=== PATIENT | female | born 1990 | race Caucasian/White ===

== ENCOUNTER 2018-01-30 10:01 | Inpatient (IN) | payer BC ==
[2018-01-30] MEDS ORDERED: Acetaminophen 500 MG TAB PO PRN (11:11)
[2018-01-30] MEDS ORDERED: Promethazine HCl 25 MG/ML VIAL IM PRN (11:11)
[2018-01-30] MEDS ORDERED: Lidocaine 1% (PF) 30 ML VIAL SC PRN (11:11)
[2018-01-30] MEDS ORDERED: Ibuprofen 800 MG TAB PO PRN (11:11)
[2018-01-30] MEDS ORDERED: HYDROcodone/Acetaminophen 5/325 mg Tablet PO PRN ×2 (11:11)
[2018-01-30] MEDS ORDERED: Misoprostol 200 MCG TAB PR PRN (11:11)
[2018-01-30] MEDS ORDERED: Diphenoxylate HCl/Atropine Tablet PO PRN ×2 (11:11)
[2018-01-30] MEDS ORDERED: Ondansetron HCl/PF 4 MG/2 ML Vial IVP PRN (11:11)
[2018-01-30] MEDS ORDERED: Docusate 100 MG CAP PO PRN (11:11)
[2018-01-30] MEDS ORDERED: NS / Oxytocin 40 units/1000ml 1,000 ML IV PRN (11:11)
[2018-01-30 11:14] VITALS: BMI 25.0
[2018-01-30] MEDS ORDERED: NS w/ Oxytocin 10 units 500 ML IV SCH (11:15)
[2018-01-30] MEDS: Lactated Ringer's 1,000 ML IV SCH ×2 (11:43→20:47)
[2018-01-30 12:33] LABS: Hemoglobin 12.6 g/dL (12.0-16.0); Mean Corpuscular HGB CONC 34.7 g/dL (32.0-36.0); Mean Corpuscular Hemoglobin 34.8 pg (27.0-31.0); Mean Platelet Volume 8.4 fL (7.4-10.4); Platelet Count 277 thou/uL (130-400); RBC Distribution Width 11.8 % (11.5-14.5); Red Blood Cell (RBC) Count 3.64 mill/uL (4.20-5.40); White Blood Cell (WBC) Count 11.5 thou/uL (4.8-10.8)
[2018-01-30 13:17] LABS: Hep B Surf Ag Non-Reactive S/CO (NonReactive); Syphilis Antibody Nonreactive (Nonreactive); Syphilis Antibody Index 0.04 S/CO (<1.00 Non-Reactive)
[2018-01-30] MEDS: Misoprostol 100 MCG TAB VAG SCH ×2 (17:53→21:05)
[2018-01-30] MEDS: Butorphanol Tartrate 1 MG/ML VIAL SLOW IVP PRN (22:40)
[2018-01-31] MEDS: Misoprostol 100 MCG TAB VAG SCH ×4 (02:11→19:32)
[2018-01-31] MEDS: Lactated Ringer's 1,000 ML IV SCH (02:11)
[2018-01-31] MEDS: Butorphanol Tartrate 1 MG/ML VIAL SLOW IVP PRN (08:42)
[2018-01-31] MEDS ORDERED: DISCONTINUE ALL PREVIOUS NARCOTICS FS SCH (09:15)
[2018-01-31] MEDS ORDERED: Bupivacaine 0.5% 20 ML, fentaNYL Citrate/PF 400 MCG in Sodium Chloride 0.9% 72 ML EPIDURAL SCH (09:15)
[2018-01-31] MEDS ORDERED: Bicitra 30 ML UDCUP ONE (09:21)
[2018-01-31] MEDS ORDERED: CEFAZOLIN/Water 2 GM/20 ML SYRINGE ONE (09:21)
[2018-01-31] MEDS ORDERED: Bupivacaine 0.75% W/DEXTROSE 8.25% 2 ML AMP ONE (09:33)
[2018-01-31] MEDS ORDERED: Morphine PF 1 MG/ML SYR ONE (09:34)
[2018-01-31] MEDS ORDERED: Hydrocortisone Sod Succ/PF 100 mg/2 ml Vial ONE (09:35)
[2018-01-31] MEDS ORDERED: Ondansetron HCl/PF 4 MG/2 ML Vial IVP PRN ×3 (09:35→10:58)
[2018-01-31] MEDS ORDERED: Meperidine HCl/PF 25 MG/ML VIAL SLOW IVP PRN (09:35)
[2018-01-31] MEDS ORDERED: HYDROmorphone 2 MG/ML VIAL SLOW IVP PRN (09:35)
[2018-01-31] MEDS ORDERED: Eucerin (Mineral Oil/Petrolatum,White) 30 gm Jar TOP PRN (09:36)
[2018-01-31] MEDS ORDERED: Naloxone HCl 0.4 mg/ml Vial IV PRN (09:36)
[2018-01-31] MEDS ORDERED: Promethazine HCl 25 MG/ML VIAL IM PRN (09:36)
[2018-01-31] MEDS ORDERED: Naloxone HCl 0.4 mg/ml Vial IVP PRN ×2 (09:36)
[2018-01-31] MEDS ORDERED: diphenhydrAMINE 50 MG/ML VIAL IVP PRN (09:36)
[2018-01-31] MEDS ORDERED: Promethazine HCl 25 MG SUPP PR PRN (09:36)
[2018-01-31] MEDS ORDERED: Lidocaine 1.5% w/Epi 1:200K 30 ML VIAL (Epid Use) ONE (09:39)
[2018-01-31] MEDS ORDERED: Ketorolac Tromethamine 30 MG/ML VIAL IVP SCH (09:45)
[2018-01-31] MEDS ORDERED: Communication Order-Pharmacy FS SCH (09:45)
[2018-01-31] MEDS ORDERED: Oxytocin 10 UNITS/ML VIAL ONE ×3 (09:51→10:10)
[2018-01-31 10:17] LABS: Actual Bicarbonate (HCO3a) 26.7 mEq/L (22-26); Analyzer IN Cardio OR; Base Excess (BEa) 0.1 mEq/L (0 (+/-) 2.5)
[2018-01-31] MEDS ORDERED: Bisacodyl 10 MG SUPP PR PRN (10:58)
[2018-01-31] MEDS ORDERED: Simethicone Chewable 80 MG TAB PO PRN (10:58)
[2018-01-31] MEDS ORDERED: Acetaminophen 325 MG TAB PO PRN (10:58)
[2018-01-31] MEDS ORDERED: Lanolin Ointment 7 GM TUBE TOP PRN (10:58)
[2018-01-31] MEDS ORDERED: Adacel (T-DAP) 0.5 ML VIAL IM ONE (10:58)
[2018-01-31] MEDS ORDERED: diphenhydrAMINE 25 MG CAP PO PRN (10:58)
[2018-01-31] MEDS ORDERED: Lactated Ringer's 1,000 ML IV SCH (11:00)
[2018-01-31] MEDS ORDERED: NS / Oxytocin 40 units/1000ml 1,000 ML IV SCH (11:00)
--- NOTE | 2018-01-31 12:31 | OP ---
DATE OF SERVICE: 01/31/2018 ATTENDING STAFF PHYSICIAN: Navi Hayes M.D. SURGEON: Navi Hayes M.D. UTILITY SPECIALIST SURGEON: Osorio Osborne M.D. PREOPERATIVE DIAGNOSES: 1. Intrauterine at 36 and 5/7 weeks. 2. Asymmetric intrauterine growth restriction. 3. Remote from delivery. 4. Maternal exhaustion. POSTOPERATIVE DIAGNOSES: 1. Intrauterine at 36 and 5/7 weeks. 2. Asymmetric intrauterine growth restriction. 3. Remote from delivery. 4. Maternal exhaustion. PROCEDURE PERFORMED: Primary low transverse section. ANESTHESIA: Spinal catheterization. FINDINGS: 1. Asymmetric IUGR with growth less than 7th percentile. 2. Grade III placenta with a decreasing amniotic fluid index. 3. Umbilical cord entanglement - nuchal cord x2, right arm, right leg. 4. Vigorous female infant, 4 pounds 13 ounces, Apgars 8 and 9. 5. Normal uterus, tubes, and ovaries. COMPLICATIONS: None. SPECIMENS REMOVED: 1. Cord and blood gas. 2. Placenta to pathology secondary to IUGR and grade III placenta. BLOOD LOSS: 600 mL. HISTORY AND INDICATIONS: Mrs. Candis Carroll is a very pleasant 27-year-old white female , wh o is followed in my clinic for obstetric care. Candis was noted to have fundal lag at her 36 week pr enatal visit. Ultrasound revealed a baby that was shown significant asymmetric IUGR with the abdomen measuring approximately 3 weeks behind accurate dating. In addition, she had a grade III placenta w ith an PADMINI of 10 cm. Biophysically, the baby looked well and she was sent home to bed rest. She ret urned to the office on the morning of 01/30/2018 for visits and testing. A repeat ultrasound revealed no interval growth with the baby following into the IUGR range measuring at the 7th percentile. The PADMINI had also decreased and there was progression of a grade III placenta. Bioph ysically, the baby looked well and continued to have 10/10 score on testing. Because of the signific ant asymmetric IUGR and no interval growth, decision was made to move towards medical induction. I c ounseled the patient and her extensively regarding the options of medical induction versus pr imary . Candis was adamant that she wished to proceed with attempt at trial of labor. She was admitted to Labor and Delivery at [facility] ([facility]) on the morning of . We performed a contraction stress test which was negative. Cervical ripening with Cytotec was performed over the evening and lean manager of 01/31/2018. I returned to see the patient and he r early on the morning of 01/31/2018. The was somewhat upset and saying that his wif jose was hurting and she was very tired and that they wanted the baby delivered. After lengthy discussi on, they made a decision to proceed with primary low transverse section. The patient was th oroughly counseled and her surgical disclosures were signed and placed in the chart. Neonatology was notified of the pending and diagnosis. Questions were answered to the patient and family' s satisfaction. PROCEDURE IN DETAIL: After thorough consent and counseling, Mrs. Carroll was taken to the operatin g room and adequate level of anesthesia was obtained by spinal catheterization. The patient was prep ped and draped in the usual sterile fashion for abdominal surgery. A Rocha was placed in the bladder , which was noted to be draining clear urine. Attention was then turned to performing the primary lo w transverse section. A Pfannenstiel incision was made and carried sharply to the fascia which was also sharply incised. T he midline was identified and the rectus muscles were retracted laterally. The abdominal peritoneal cavity was entered with usual safeguards carried out. A retractor was placed and a bladder flap was created on the vesicouterine peritoneum. A bladder blade was then placed. A low transverse incision was made on the well-developed lower uterine segment. Upon entering the amniotic sac, a scant amoun t of clear amniotic fluid was visualized. It was noted that prior to delivery, the patient did have spontaneous rupture of membranes. The amniotic fluid was clear. The was noted to be vertex presentation in the occiput anterior position, still high in the pelvis. Head was delivered in an atraumatic fashion. We found a very tight double nuchal cord and the umbilical cord was also w rapped around the right shoulder and right leg. The shoulders and after coming body were delivered i n an atraumatic fashion. The cord was doubly clamped and cut and infant was handed to the neonatolog y team in attendance for the delivery. The infant was a vigorous viable female weighing 4 pounds 13 ounces with Apgars of 8 and 9 obtained at 1 and 5 minutes respectively. Cord blood gases were obtain ed. The placenta was manually removed from the uterus. The placenta was sent to pathology secondary to IUGR and grade III placenta. The uterus was exteriorized and good tone was noted with vigorous m anipulation and massage. The uterine cavity was cleared of any remaining clot and fluid. The incisi on was then closed with a running locking ligature of #1 chromic. A second imbricating layer was nick zeina to facilitate strength and hemostasis. There was also [id number] ligatures of 0 Vicryl sutu re placed for scar integrity. The vesicouterine peritoneum was then closed with a running ligature o f 3-0 Monocryl suture. The incision was inspected and noted to be hemostatic. The posterior cul-de- sac and gutters were cleared of clot and fluid. Seprafilm was applied to the low transverse incision and to the anterior aspect of the uterus for adhesion prevention. The uterus was returned to the ab domen and good tone and hemostasis was appreciated. Lap, sponge, and needle counts were correct. Th e peritoneum was closed with a running ligature of 2-0 Vicryl. The muscles were reapproximated with interrupted ligatures of 2-0 Vicryl. The fascia was then closed with 2 ligatures of 0 Vicryl suture, which were tied in the midline. Good fascial integrity was appreciated. The incision was irrigated with copious amount of warm normal saline. The subcutaneous tissue was then closed with interrupted ligatures of 2-0 plain. The skin was closed with a subcuticular stitch of 4-0 Monocryl and dressed with Dermabond. Lap, sponge, and needle counts were correct x3. Estimated blood loss during the [facility] low transverse section was approximately 600 mL. The patient was taken to recovery [facility] in good condition. Mother and baby were doing well postoperatively. Immediately following surgery, the patient and family were made aware of the surgical procedure and o perative findings. Questions answered to their satisfaction.
[2018-01-31] MEDS ORDERED: Ondansetron HCl/PF 4 MG/2 ML Vial ONE (13:51)
[2018-01-31] MEDS ORDERED: Meperidine HCl/PF 25 MG/ML VIAL IM PRN (18:56)
[2018-01-31] MEDS ORDERED: HYDROcodone/Acetaminophen 5/325 mg Tablet PO PRN (18:56)
[2018-01-31] MEDS ORDERED: Zolpidem Tartrate 5 MG TAB PO PRN (18:57)
[2018-01-31] MEDS: Ferrous Sulfate 325 MG TAB PO SCH (19:31)
[2018-01-31] MEDS: Docusate Calcium (SURFAK) 240 MG CAP PO SCH (21:00)
[2018-01-31] MEDS: Labetalol 100 MG TAB PO SCH (21:03)
[2018-02-01] MEDS: Ketorolac Tromethamine 30 MG/ML VIAL IVP PRN ×2 (00:10→05:58)
[2018-02-01 05:47] LABS: Hemoglobin 9.6 g/dL (12.0-16.0); Mean Corpuscular HGB CONC 34.1 g/dL (32.0-36.0); Mean Corpuscular Hemoglobin 34.6 pg (27.0-31.0); Platelet Count 200 thou/uL (130-400); RBC Distribution Width 12.1 % (11.5-14.5); Red Blood Cell (RBC) Count 2.78 mill/uL (4.20-5.40); White Blood Cell (WBC) Count 17.5 thou/uL (4.8-10.8)
[2018-02-01] MEDS ORDERED: Sodium Chloride 0.9% 10 ML ONE (06:16)
[2018-02-01] MEDS: Prenatal Vitamin 1 TAB PO SCH (08:51)
[2018-02-01] MEDS: Ferrous Sulfate 325 MG TAB PO SCH ×2 (08:52→18:16)
[2018-02-01] MEDS: Docusate Calcium (SURFAK) 240 MG CAP PO SCH ×2 (08:52→21:09)
[2018-02-01] MEDS: Labetalol 100 MG TAB PO SCH ×2 (08:58→21:09)
[2018-02-01] MEDS: HYDROcodone/Acetaminophen 5/325 mg Tablet PO PRN ×2 (12:02→22:12)
[2018-02-01] MEDS: Ibuprofen 800 MG TAB PO SCH ×2 (14:16→21:09)
[2018-02-02] MEDS: Ibuprofen 800 MG TAB PO SCH ×3 (05:30→14:13)
[2018-02-02] MEDS: Ferrous Sulfate 325 MG TAB PO SCH (09:38)
[2018-02-02] MEDS: Labetalol 100 MG TAB PO SCH (09:39)
[2018-02-02] MEDS: Docusate Calcium (SURFAK) 240 MG CAP PO SCH (09:40)
[2018-02-02] MEDS: Prenatal Vitamin 1 TAB PO SCH (09:40)
[2018-02-02 13:00] VITALS: BP 130/87; TEMP 98.2
== END 2018-02-02 15:20 | disposition home or self-care (01) | DRG 766 ==
LOC: L&D/OP 10:01 → L&D 10:07 → 3SW 01-31 13:12
PROVIDERS: ADMIT Obstetrics & Gynecology; ATTEND Obstetrics & Gynecology
PROC: 10D00Z1 Extraction of Products of Conception, Low, Open Approach (ICD-10-PCS; principal; 2018-01-31)
DX: O36.5930 Maternal care for other known or suspected poor fetal growth, third trimester, not applicable or unspecified (principal); Z37.0 Single live birth; O69.81X0 Labor and delivery complicated by cord around neck, without compression, not applicable or unspecified; Z3A.36 36 weeks gestation of pregnancy
CPT/HCPCS: 36415; 51702; 82805; 85027; 86780; 86850; 86870; 86900; 86901; 87340; 88307; A4216; J0595; J1720; J1885; J2274; J2405; J2590; J3010; J3490; J7050; J8499

== ENCOUNTER 2018-08-10 13:43 | Outpatient (CLI) | payer BC ==
--- NOTE | 2018-08-10 15:01 | BD ---
DEXA BONE DENSITY SCAN: DATE: 08/10/2018. COMPARISON: None. HISTORY: Evaluate for osteoporosis. Long-term use of systemic steroids. FINDINGS: Lumbar Spine: BMD (g/cm2) L1 0.988 T-Score: 0.0 L2 1.009 T-Score: -0.2 L3 0.993 T-Score: -0.8 L4 0.941 T-Score: -1.1 L1-L4 0.981 T-Score: -0.6 Femoral Neck: 0.801 T-Score: -0.4 Total Femur: 0.886 T-Score: -0.5 The FRAX-WHO fracture risk assessment tool is not provided as all T-scores are at or above -1.0 Impression: Normal bone mineral density exam. POS: C
== END 2018-08-10 13:44 | disposition home or self-care (01) ==
LOC: BICMAMMO 13:43
PROVIDERS: ATTEND Internal Medicine
DX: Z13.820 Encounter for screening for osteoporosis (principal); K51.90 Ulcerative colitis, unspecified, without complications
CPT/HCPCS: 77080

== ENCOUNTER 2023-11-20 | Outpatient (CLI) | payer BC | END 2023-11-20 08:17 | disposition home or self-care (01) | DX: N61.0 Mastitis without abscess (principal) ==

== ENCOUNTER 2024-10-17 14:33 | Outpatient (CLI) | payer BC | END 2024-10-17 14:34 | disposition home or self-care (01) | LOC: BICMAMMO 14:33 | PROVIDERS: ATTEND Student in an Organized Health Care Education/Training Program | DX: N60.12 Diffuse cystic mastopathy of left breast (principal) | CPT/HCPCS: 76642; 77066; G0279 ==